=== PATIENT | male | born 1990 | race Caucasian/White ===

== ENCOUNTER 2024-12-25 17:19 | Inpatient (IN) | payer OTHER ==
[2024-12-25] MEDS ORDERED: ACETAMINOPHEN INJECTION 100 ML ONE (18:51)
[2024-12-25] MEDS ORDERED: ONDANSETRON 4 MG/2 ML VIAL ONE (18:52)
[2024-12-25] MEDS ORDERED: FAMOTIDINE 20 MG/50 ML IVPB 20 MG/50 ML MG IVPB ONE (18:52)
[2024-12-25] MEDS ORDERED: MAG HYDROX/AL HYDROX/SIMETH 30 ML UNIT-DOSE CUP ONE (18:52)
[2024-12-25 19:02] LABS: ABSOLUTE IMMATURE GRANULOCYTES 0.07 x10^3/uL (0.0-0.031); BASOPHILS # 0.02 x10^3/uL (0.01-0.08); HEMOGLOBIN 15.7 g/dL (13.7-17.5); MCHC 33.4 g/dl (32.3-36.5); MEAN CELL VOLUME 84.4 fl (79.0-92.2); MONOCYTE # 1.28 x10^3/uL (0.30-0.82); MONOCYTE % 8.4 % (5.3-12.2); PLATELET COUNT 225 x10^3/uL (163-337); RDW 13.6 % (12.0-15.6)
[2024-12-25] MEDS: ACETAMINOPHEN 1000 MG/100 ML BAG IVPB ONE (19:10)
[2024-12-25] MEDS: FAMOTIDINE 20 MG/50 ML IVPB 20 MG/50 ML MG IVPB ONE (19:10)
[2024-12-25] MEDS: MAG HYDROX/AL HYDROX/SIMETH 30 ML UNIT-DOSE CUP PO ONE (19:10)
[2024-12-25] MEDS: SODIUM CHLORIDE 1,000 ML IV STA (19:10)
[2024-12-25 19:11] LABS: INR 1.09 (0.83-1.09); PROTHROMBIN TIME (PATIENT) 11.9 SEC (9.7-13.0)
[2024-12-25] MEDS: ONDANSETRON 4 MG/2 ML VIAL IVPUSH ONE (19:11)
[2024-12-25 19:14] LABS: ACTIVATED PTT 31.6 SECONDS (25.2-36.5)
[2024-12-25 19:28] LABS: PH,URINE 6.5 (5.0-8.0); URINE APPEARANCE CLEAR; URINE BILIRUBIN NEGATIVE (NEGATIVE); URINE COLOR YELLOW; URINE GLUCOSE (UA) NEGATIVE (NEGATIVE); URINE KETONE 3+ (NEGATIVE); URINE LEUK ESTERASE NEGATIVE (NEGATIVE); URINE NITRITE NEGATIVE (NEGATIVE); URINE PROTEIN TRACE (NEGATIVE)
[2024-12-25 19:29] LABS: POTASSIUM 3.9 mmol/L (3.5-5.1)
[2024-12-25 19:32] LABS: ALBUMIN 4.5 g/dl (3.4-5.0); BLOOD UREA NITROGEN 10.4 mg/dL (7-18); CALCIUM 10.3 mg/dL (8.5-10.1); MAGNESIUM 1.8 mg/dL (1.8-2.4)
[2024-12-25 19:37] LABS: TOT PROT 7.6 g/dl (6.4-8.2)
[2024-12-25 21:58] LABS: HCV DIAGNOSTIC IN-HOUSE W/RFLX NON-REACTIVE (NONREACTIVE)
[2024-12-25 21:59] LABS: HIV INTERPRETATION NEGATIVE (NEGATIVE)
[2024-12-25] MEDS ORDERED: ONDANSETRON 4 MG/2 ML VIAL IVPUSH PRN (22:35)
[2024-12-25] MEDS ORDERED: ACETAMINOPHEN 325 MG TABLET (FP) PO PRN (22:35)
[2024-12-25] MEDS ORDERED: MORPHINE SULFATE 2 MG/ML SYRINGE IVPUSH PRN (22:35)
[2024-12-25] MEDS ORDERED: KETOROLAC TROMETHAMINE 15 MG/ML VIAL ONE (22:39)
[2024-12-25] MEDS: KETOROLAC TROMETHAMINE 15 MG/ML VIAL IVPUSH ONE (22:47)
[2024-12-25] MEDS: SODIUM CHLORIDE 1,000 ML IV SCH (22:50)
[2024-12-25] MEDS ORDERED: AMPICILLIN NA/SULBACTAM NA 3 GM/100 ML BAG IVPB ONE (23:12)
[2024-12-25] MEDS: AMPICILLIN NA/SULBACTAM NA 3 GM in SODIUM CHLORIDE 100 ML IVPB SCH (23:22)
[2024-12-26] MEDS: IBUPROFEN 400 MG TABLET (FP) PO PRN (01:26)
[2024-12-26 01:54] VITALS: BMI 26.4
[2024-12-26] MEDS: SODIUM CHLORIDE 1,000 ML IV SCH (08:48)
[2024-12-26 08:59] LABS: INR 1.18 (0.83-1.09)
[2024-12-26 09:01] LABS: HEMATOCRIT 43.9 % (40.1-51.0); HEMOGLOBIN 14.5 g/dL (13.7-17.5); MEAN CELL VOLUME 86.9 fl (79.0-92.2); MEAN PLT VOLUME 11.4 fl (9.4-12.4); PLATELET COUNT 193 x10^3/uL (163-337); RDW 13.8 % (12.0-15.6)
[2024-12-26] MEDS: PANTOPRAZOLE 40 MG TABLET PO SCH (09:25)
[2024-12-26 10:14] LABS: ALBUMIN 3.7 g/dl (3.4-5.0); CALCIUM 9.3 mg/dL (8.5-10.1)
[2024-12-26 10:15] LABS: BLOOD UREA NITROGEN 13.7 mg/dL (7-18)
[2024-12-26 10:18] LABS: BILIRUBIN,TOTAL 1.2 mg/dL (0.2-1)
[2024-12-26 10:20] LABS: TOT PROT 6.3 g/dl (6.4-8.2)
[2024-12-26] MEDS ORDERED: AMPICILLIN NA/SULBACTAM NA 3 GM VIAL ONE (13:18)
[2024-12-26] MEDS ORDERED: INDOCYANINE GREEN 25 MG/10 ML VIAL IVPUSH ONE (13:39)
[2024-12-26] MEDS ORDERED: BUPIVACAINE HCL/PF 0.25% (2.5MG/ML) 10 ML VIAL ONE (13:40)
[2024-12-26] MEDS ORDERED: LIDOCAINE HCL/PF 2% SDV 5ML VIAL ONE (13:50)
[2024-12-26] MEDS ORDERED: ONDANSETRON 4 MG/2 ML VIAL IVPUSH PRN ×2 (14:03→18:44)
[2024-12-26] MEDS ORDERED: PROMETHAZINE HCL 25 MG/1 ML VIAL IVPB PRN ×2 (14:03→18:44)
[2024-12-26] MEDS ORDERED: ACETAMINOPHEN INJECTION 100 ML ONE (14:04)
[2024-12-26] MEDS ORDERED: MIDAZOLAM HCL 2 MG/2 ML SINGLE DOSE VIAL ONE (14:05)
[2024-12-26] MEDS ORDERED: LACTATED RINGERS SOLUTION 1,000 ML IV SCH (14:15)
[2024-12-26] MEDS: cefOXitin SODIUM 2 GM VIAL (RESTRICTED TO ID) IVPB ONE (15:14)
[2024-12-26] MEDS ORDERED: ONDANSETRON 4 MG/2 ML VIAL ONE (15:15)
[2024-12-26] MEDS ORDERED: DEXAMETHASONE SOD PHOSPHATE 4 MG/1 ML VIAL ONE (15:15)
[2024-12-26] MEDS: BUPIVACAINE HCL/PF 0.25% (2.5MG/ML) 10 ML VIAL IJ ONE (15:23)
[2024-12-26] MEDS ORDERED: SUGAMMADEX SODIUM 200 MG/2 ML VIAL ONE (16:33)
[2024-12-26] MEDS ORDERED: PROPOFOL 20 ML ONE (16:51)
[2024-12-26] MEDS ORDERED: SODIUM CHLORIDE 1,000 ML IV SCH (18:44)
[2024-12-26] MEDS: LACTATED RINGERS SOLUTION 1,000 ML IV SCH (19:29)
[2024-12-26] MEDS: AMPICILLIN NA/SULBACTAM NA 3 GM in SODIUM CHLORIDE 100 ML IVPB SCH (20:25)
[2024-12-26] MEDS: oxyCODONE HCL 5 MG TABLET PO PRN (20:26)
[2024-12-26] MEDS: ACETAMINOPHEN 325 MG TABLET (FP) PO SCH (22:19)
[2024-12-27] MEDS: KETOROLAC TROMETHAMINE 15 MG/ML VIAL IVPUSH PRN (01:18)
[2024-12-27] MEDS: ONDANSETRON 4 MG/2 ML VIAL IVPUSH PRN ×2 (02:27→06:02)
[2024-12-27 03:17] VITALS: RESP 18
[2024-12-27] MEDS: HYDROmorphone HCL CARPU-JECT 2 MG/1 ML DISP.SYRIN IVPUSH ONE (03:46)
[2024-12-27] MEDS: MAG HYDROX/AL HYDROX/SIMETH 30 ML UNIT-DOSE CUP PO ONE (05:41)
[2024-12-27] MEDS: LACTATED RINGERS SOLUTION 1,000 ML IV SCH (09:17)
[2024-12-27 10:09] LABS: HEMOGLOBIN 14.5 g/dL (13.7-17.5); MEAN CELL VOLUME 85.6 fl (79.0-92.2); MEAN PLT VOLUME 11.9 fl (9.4-12.4); PLATELET COUNT 211 x10^3/uL (163-337); RDW 13.2 % (12.0-15.6)
[2024-12-27] MEDS: ACETAMINOPHEN 1000 MG/100 ML BAG IVPB PRN (10:16)
[2024-12-27] MEDS: PANTOPRAZOLE 40 MG TABLET PO SCH (10:16)
[2024-12-27 11:17] LABS: POTASSIUM 3.7 mmol/L (3.5-5.1)
[2024-12-27 11:31] LABS: BLOOD UREA NITROGEN 11.2 mg/dL (7-18); CALCIUM 9.3 mg/dL (8.5-10.1)
[2024-12-27 11:35] LABS: CREATININE 0.8 mg/dL (0.55-1.3)
[2024-12-27 11:36] LABS: BILIRUBIN,TOTAL 1.7 mg/dL (0.2-1); TOT PROT 6.7 g/dl (6.4-8.2)
[2024-12-27 11:49] LABS: ALBUMIN 4.2 g/dl (3.4-5.0); BILIRUBIN,TOTAL 1.8 mg/dL (0.2-1); TOT PROT 6.9 g/dl (6.4-8.2)
[2024-12-27 11:51] LABS: BILIRUBIN,DIRECT 0.4 mg/dL (0.0-0.2)
[2024-12-27] MEDS: AMPICILLIN NA/SULBACTAM NA 3 GM in SODIUM CHLORIDE 100 ML IVPB SCH (14:08)
[2024-12-27] MEDS: oxyCODONE HCL 5 MG TABLET PO PRN (19:45)
[2024-12-27] MEDS: KETOROLAC TROMETHAMINE 15 MG/ML VIAL IVPUSH SCH (21:09)
[2024-12-28 08:30] LABS: HEMATOCRIT 41.6 % (40.1-51.0); HEMOGLOBIN 14.2 g/dL (13.7-17.5); MCHC 34.1 g/dl (32.3-36.5); MEAN CELL VOLUME 84.4 fl (79.0-92.2); MEAN PLT VOLUME 11.3 fl (9.4-12.4); PLATELET COUNT 196 x10^3/uL (163-337); RDW 12.8 % (12.0-15.6)
[2024-12-28 08:58] LABS: POTASSIUM 3.6 mmol/L (3.5-5.1)
[2024-12-28 09:05] LABS: ALBUMIN 3.6 g/dl (3.4-5.0); BLOOD UREA NITROGEN 8.9 mg/dL (7-18); CALCIUM 8.9 mg/dL (8.5-10.1)
[2024-12-28 09:09] LABS: CREATININE 0.8 mg/dL (0.55-1.3)
[2024-12-28 09:10] LABS: BILIRUBIN,TOTAL 1.4 mg/dL (0.2-1); TOT PROT 6.2 g/dl (6.4-8.2)
[2024-12-28 12:46] VITALS: BP 129/73; PULSE 86; TEMP 99
== END 2024-12-28 15:28 | disposition home or self-care (01) | DRG 263 ==
LOC: JER 17:19 → JERBED 22:24 → J6S 12-26 00:51
PROVIDERS: ADMIT Hospitalist; ATTEND Internal Medicine
PROC: 8E0W4CZ Robotic Assisted Procedure of Trunk Region, Percutaneous Endoscopic Approach (ICD-10-PCS; 2024-12-26)
PROC: 0FT44ZZ Resection of Gallbladder, Percutaneous Endoscopic Approach (ICD-10-PCS; principal; 2024-12-26 15:45)
DX: K80.20 Calculus of gallbladder without cholecystitis without obstruction (principal); J45.909 Unspecified asthma, uncomplicated; R11.2 Nausea with vomiting, unspecified; K85.10 Biliary acute pancreatitis without necrosis or infection
CPT/HCPCS: 36415; 74018-TC-FY; 74177-TC; 76705-TC; 80053; 80076; 81003; 82150; 83690; 83735; 85025; 85027; 85610; 85730; 86803; 86850; 86900; 86901; 87086; 87389; 88304-TC; 93005; 93010; 94760; 99285-25; J0131; Q9967